=== PATIENT | male | born 2000 | race Caucasian/White ===

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

== ENCOUNTER 2024-11-21 14:41 | Outpatient (CLI) | payer BC, MEDICAID, SELFPAY ==
[2024-11-22 17:40] LABS: HEP C RNA Viral Load Quant 158000 IU/mL (NOT DETECTED)
== END 2024-11-21 14:42 | disposition home or self-care (01) ==
LOC: LAB 14:44
PROVIDERS: PCP Nurse Practitioner Family; Visit Provider Nurse Practitioner Family
DX: R79.89 Other specified abnormal findings of blood chemistry (principal); R76.8 Other specified abnormal immunological findings in serum
CPT/HCPCS: 36415; 87522